=== PATIENT | male | born 1980 ===

== ENCOUNTER 2024-11-10 20:04 | Emergency (ER) | payer SELFPAY ==
[2024-11-10 20:16] VITALS: BP 122/73; PULSE 85; RESP 18; TEMP 37.3; O2SAT 99
--- NOTE | 2024-11-10 20:22 | PC.NURSE ---
BG in 115 in triage
[2024-11-10 21:17] LABS: Glucose Point of Care 115 mg/dl (65-105)
--- NOTE | 2024-11-10 21:35 | PC.NURSE ---
No answer when called for room.
--- OUTSIDE RECORDS SUMMARY | 2024-11-17 07:07 | XMS_ITS | Continuity of Care Document ---
Author Organization [facility] Address [address] [place] [address] Phone Care Team Providers Care Outreach Professional Name Role Phone Guillermo Jade MD Unavailable Unavailable Allergies, Adverse Reactions, Alerts Substance Reaction Status Criticality No Known allergies Advance Directives Directive Yes / No Effective Date File Name No Information Encounters Encounter Description Practice Location Reason(s) For Visit Diagnoses Date Provider Providers Copied on Encounter [facility], [address] [facility] [address], [place], [place], [id number], [place] tel:[phone] [facility] No Information Kalie Li. [address], [place], [id number], [place]. tel:[phone] Family History Family Member Type Diagnosis Age At Onset Mother Problem (finding) Alive and well Payers Payer name Insurance type Covered alliance party ID Authoriza tion(s) No Information Social History Type Description Quantity Date Captured Comments Sex Male Smoking Status No Information Chief Complaint And Reason For Visit No Information Reason For Referral Reason For Referral No Information History Of Present Illness Encounter Date Complaint History Of Prese nt Illness No Information Functional Status Date Functional Assessmen t No Information Instructions Date Instruction Additional Infor mation No Information Assessments Type Assessment Date No Information Patient Care Teams Name Effective Dates (start - stop) Status Members No Information
== END 2024-11-10 21:49 | disposition left against medical advice (07) ==
LOC: ANHED 22:26
PROVIDERS: Emergency Provider Student in an Organized Health Care Education/Training Program
DX: R73.9 Hyperglycemia, unspecified (principal)
CPT/HCPCS: 82948; 99199